=== PATIENT | male | born 1970 | race Caucasian/White ===

== ENCOUNTER 2017-01-09 18:04 | Emergency (ER) | payer BC ==
[2017-01-09 18:36] VITALS: BP 134/74
--- NOTE | 2017-01-09 18:44 | UC ---
Throat Pain/Nasal Oswald HPI - HPI Summary HPI Summary: complaint of throat feeling strange, throat with slight soreness thinks he might have thrush took 3 doses of antibiotics - pharyngitis- 3x in the last 40 days no difficulty swallowing but feels like he has a "bump " when swallowing denies cough denies fever , headache, nasal congestion - History of Current Complaint Chief Complaint: UCRespiratory Stated Complaint: SORE THROAT Time Seen by Provider: 01/09/17 18:38 Hx Obtained From: Patient - Allergies/Home Medications Allergies/Adverse Reactions: Allergies Allergy/AdvReac Type Severity Reaction Status Date / Time No Known Allergies Allergy Verified 01/09/17 18:36 Home Medications: Home Medications NK [No Home Medications Reported] 01/09/17 [History Confirmed 01/09/17] PMH/Surg Hx/FS Hx/Imm Hx Previously Healthy: Yes Endocrine History Of: Denies: Diabetes GI/ History Of: Reports: Kidney Stones - Surgical History Surgical History: None - Family History Known Family History: Positive: Hypertension, Diabetes, Other - Kidney stones - Social History Occupation: Employed Full-time Lives: With Family Alcohol Use: Occasionally Substance Use Type: None Smoking Status (MU): Never Smoked Tobacco Review of Systems Constitutional: Negative Skin: Negative Eyes: Negative ENT: Sore Throat Respiratory: Negative Cardiovascular: Negative Gastrointestinal: Negative Genitourinary: Negative Motor: Negative Neurovascular: Negative Musculoskeletal: Negative Neurological: Headache Psychological: Negative All Other Systems Reviewed And Are Negative: Yes Physical Exam Triage Information Reviewed: Yes Appearance: No Pain Distress, Well-Nourished Vital Signs: Initial Vital Signs Temp 97.7 F 01/09/17 18:31 Pulse 54 01/09/17 18:31 Resp 18 01/09/17 18:31 BP 134/74 01/09/17 18:31 Pulse Ox 99 01/09/17 18:31 Vital Signs Reviewed: Yes Eyes: Positive: Conjunctiva Clear ENT: Positive: Pharynx normal, TMs normal. Negative: Pharyngeal erythema, Nasal congestion, Nasal drainage, Tonsillar swelling Neck: Positive: No Lymphadenopathy Respiratory: Positive: Lungs clear, Normal breath sounds, No respiratory distress Cardiovascular: Positive: RRR, No Murmur, Pulses Normal Abdomen Description: Positive: Nontender, Soft Bowel Sounds: Positive: Present Musculoskeletal: Positive: No Edema Neurological: Positive: Alert Psychological Exam: Normal Skin Exam: Normal Throat Pain/Nasal Course/Dx - Course Course Of Treatment: exam completed. no s/s of thrush. will sedn to PCP for followup and possible referral to ENT if no improvement - Differential Dx/Diagnosis Differential Diagnosis/HQI/PQRI: Pharyngitis, Tonsillitis, Other - thrush Provider Diagnoses: pharyngitis Discharge - Discharge Plan Condition: Stable Disposition: HOME Patient Education Materials: Pharyngitis (ED) Referrals: Cali Katz MD [Primary Care Provider] - Additional Instructions: Your blood pressure is pre-hypertensive reading. Please contact your primary care provider within 1 day -4 weeks for further evaluation. HARYNGITIS (Sore Throat) What is Pharyngitis? The medical name for a sore throat is Pharyngitis. It is caused by an infection or irritation of your throat or tonsils. The infection can be caused by a virus or by bacteria. Not everyone with Pharyngitis needs antibiotics. Antibiotics will not make viral infections better, and they will not help a sore throat caused by irritation. Symptoms May Include: Sore throat Swelling of the glands in the neck Trouble or pain with swallowing Fever Headache Cough Extreme tiredness Ear pain Treatment Recommendations: Gargle every few hours with a solution of 1/4 teaspoon of salt dissolved in 1/ 2 cup of warm water. Drink plenty of warm beverages, like tea with lemon, (with or without honey) and soup. You may eat and drink cold foods and liquids like frozen yogurt, popsicles, and ice water if that makes your throat feel better. The goal is to keep you well hydrated. Use a "cool-mist" vaporizer or humidifier in the room where you spend most of your time. If you get a sore throat often, consider adding an electronic air filter and humidifier to your furnace system. Don't smoke. Do not eat spicy foods. Take medicine exactly as prescribed. If you do not think it is helping, call your healthcare provider. Do not increase how much or how often you take it without getting their OK first. Non-prescription anti-inflammatory medicine like ibuprofen (Motrin, Advil) or naproxen (Aleve) may help lessen the pain. You should not take these medicines if you have had bleeding in your stomach in the past. Acetaminophen ( Tylenol) is another choice of medicine that may help the pain. If pain medicine that makes you tired or sleepy or contains narcotics is prescribed, you should not drink, drive, or participate in any other activities that you need to be clear-headed for. Please keep all medicines out of the reach of children. Do not get in close contact with anyone you know who has a sore throat. Use throat lozenges (Cepostat, [place], etc.) or suck on hard candy for temporary relief of the pain with swallowing. (Do not give to children under age 5.) Call Your Doctor or Return Here IF: Your symptoms do not start to get better within 2 days or you become worse. You have a fever over 101.0 F orally. You cant swallow liquids or saliva. You are drooling. You start to have trouble breathing. You start to have a rash. You start to have a stiff neck. You start to have pain in your chest. You start to have any symptoms that are new or worry you.
== END 2017-01-09 19:15 | disposition home or self-care (01) ==
LOC: UCEAST 18:04
DX: J02.9 Acute pharyngitis, unspecified (principal)
CPT/HCPCS: 99211; G0463

== ENCOUNTER 2017-12-25 12:27 | Emergency (ER) | payer BC ==
[2017-12-25 12:36] VITALS: BP 140/89
--- NOTE | 2017-12-25 13:22 | UC ---
Skin Complaint HPI - HPI Summary HPI Summary: 47 yo WM no pmhx c/o small discrete rash in right forearm, and right upper inner thigh x 2-3 days. Does not recall scratching and nor particularly itchy, Denies new foods, detergent lotions, swimming, or contact with unsual bodies of water sweaty clothes or people or recent illnesses - History of Current Complaint Chief Complaint: UCSkin Time Seen by Provider: 12/25/17 12:56 Stated Complaint: RASH Hx Obtained From: Patient Onset/Duration: Lasting Days Skin Exposure Onset/Duration: Days Ago Onset Severity: Moderate Pain Intensity: 0 Location: Discrete, Other - right forearm and Aggravating Factor(s): Nothing Alleviating Factor(s): Nothing Associated Signs & Symptoms: Positive: Negative. Negative: Difficulty Breathing , Fever, Chills, Cough, Drainage, Tenderness - Allergy/Home Medications Allergies/Adverse Reactions: Allergies Allergy/AdvReac Type Severity Reaction Status Date / Time No Known Allergies Allergy Verified 12/25/17 12:36 Home Medications: Home Medications Efinaconazole [Jublia] 10 % EX DAILY 12/25/17 [History Confirmed 12/25/17] Review of Systems Constitutional: Negative Skin: Rash Eyes: Negative ENT: Negative Respiratory: Negative Cardiovascular: Negative Gastrointestinal: Negative Genitourinary: Negative Motor: Negative Neurovascular: Negative Musculoskeletal: Negative Neurological: Negative Psychological: Negative All Other Systems Reviewed And Are Negative: Yes PMH/Surg Hx/FS Hx/Imm Hx - Additional Past Medical History Additional PMH: none Previously Healthy: Yes - Surgical History Surgical History: None - Family History Known Family History: Positive: Hypertension, Diabetes, Other - Kidney stones - Social History Alcohol Use: Occasionally Substance Use Type: None Smoking Status (MU): Never Smoked Tobacco Physical Exam Triage Information Reviewed: Yes Appearance: Well-Appearing Vital Signs: Initial Vital Signs Temp 36.1 C 12/25/17 12:31 Pulse 53 12/25/17 12:31 Resp 16 12/25/17 12:31 BP 140/89 12/25/17 12:31 Pulse Ox 100 12/25/17 12:31 Eye Exam: Normal ENT Exam: Normal Dental Exam: Normal Neck exam: Normal Neck: Positive: 1 Respiratory Exam: Normal Cardiovascular Exam: Normal Abdominal Exam: Normal Musculoskeletal Exam: Normal Neurological Exam: Normal Psychological Exam: Normal Skin: Positive: rashes - small discrete blanchable raised irritated areas size abor 2x3cm of mild excoriation on right medial lower upper forearm and inner upper thigh Course/Dx - Course Course Of Treatment: likely idiopathic nonspecific skin erutption vs contact dermatitis (having to do with eccrine glands as pt works out alot and daily) which then was exacerbated by mild manual irritation - Diagnoses Provider Diagnoses: nonpsecific skin eruption. elevated BP w/o dx of HTN Discharge - Discharge Plan Condition: Stable Disposition: HOME Prescriptions: Betamethasone Valerate 45 gm TP BID 7 Days #1 tube Patient Education Materials: Acute Rash (ED) Referrals: Cali Katz MD [Primary Care Provider] - Additional Instructions: if symptoms persist or do not improve, consult with a buff wheel fabricator
== END 2017-12-25 13:20 | disposition home or self-care (01) ==
LOC: UCEAST 12:27
DX: R21 Rash and other nonspecific skin eruption (principal); R03.0 Elevated blood-pressure reading, without diagnosis of hypertension
CPT/HCPCS: 99212; G0463

== ENCOUNTER 2019-01-13 14:37 | Emergency (ER) | payer BC ==
[2019-01-13 14:44] VITALS: BP 154/98
--- NOTE | 2019-01-13 15:13 | UC ---
Skin Complaint HPI - HPI Summary HPI Summary: C/O left groin rash x 2 days. Got a penicillin shot for syphillus exposure 3 days ago. Used tinactin spray - History of Current Complaint Chief Complaint: UCSkin Stated Complaint: SKIN COMPLAINT Hx Obtained From: Patient Onset/Duration: Sudden Onset, Lasting Days - 2, Worse Since - onset Skin Exposure Onset/Duration: Days Ago - 3 Onset Severity: Mild Current Severity: Mild Pain Intensity: 0 Location: Discrete - left inguinal region Character: Pruritus, Redness Aggravating Factor(s): Nothing Alleviating Factor(s): Nothing Associated Signs & Symptoms: Positive: Rash. Negative: Nausea, Vomiting, Fever , Chills, Abdominal Pain, Tenderness, Red Streaks Related History: Recent change in medication - Allergy/Home Medications Allergies/Adverse Reactions: Allergies Allergy/AdvReac Type Severity Reaction Status Date / Time No Known Allergies Allergy Verified 01/13/19 14:44 PMH/Surg Hx/FS Hx/Imm Hx Previously Healthy: Yes - Surgical History Surgical History: None - Family History Known Family History: Positive: Hypertension, Diabetes, Other - Kidney stones - Social History Occupation: Employed Full-time Lives: Alone - with Partner Alcohol Use: Occasionally Substance Use Type: None Smoking Status (MU): Never Smoked Tobacco Review of Systems All Other Systems Reviewed And Are Negative: Yes Skin: Positive: Rash Is Patient Immunocompromised?: No Physical Exam Triage Information Reviewed: Yes Appearance: Well-Appearing, No Pain Distress, Well-Nourished Vital Signs: Initial Vital Signs Temp 97.4 F 01/13/19 14:41 Pulse 57 01/13/19 14:41 Resp 16 01/13/19 14:41 BP 154/98 01/13/19 14:41 Pulse Ox 100 01/13/19 14:41 Vital Signs Reviewed: Yes Eyes: Positive: Conjunctiva Clear Neck exam: Normal Respiratory Exam: Normal Cardiovascular Exam: Normal Abdominal Exam: Normal Bowel Sounds: Positive: Present Musculoskeletal Exam: Normal Neurological Exam: Normal Psychological Exam: Normal Skin: Positive: Rashes - erythematous patch left inguinal region with redness also at the top of the gluteal cleft. Course/Dx - Differential Diagnoses - Skin Complaint Differential Diagnoses: Abscess, Cellulitis, Eczema, Lymphadenitis - Diagnoses Provider Diagnosis: Candidal dermatitis, Dermatitis, Elevated blood pressure, situational Discharge - Sign-Out/Discharge Documenting (check all that apply): Patient Departure All imaging exams completed and their final reports reviewed: No Studies - Discharge Plan Condition: Stable Disposition: HOME Prescriptions: Betamethasone Dipropionate 45 gm TP BID #45 gm Ketoconazole 2 % CREAM (NF) [Nizoral 2% CREAM (NF)] 1 applic TOPICAL BID #30 gm Patient Education Materials: Skin Yeast Infection (ED), Ketoconazole (On the skin) Referrals: Cali Katz MD [Primary Care Provider] - 2 Weeks (recheck blood pressure.) - Billing Disposition and Condition Condition: STABLE Disposition: Home
== END 2019-01-13 15:31 | disposition home or self-care (01) ==
LOC: UCEAST 14:37
DX: L30.8 Other specified dermatitis (principal); B37.2 Candidiasis of skin and nail; R03.0 Elevated blood-pressure reading, without diagnosis of hypertension
CPT/HCPCS: 99212; G0463

== ENCOUNTER 2019-08-08 18:57 | Emergency (ER) | payer BC ==
--- OUTSIDE RECORDS SUMMARY | 2019-08-08 19:46 | XMS REPORT | Continuity of Care Document ---
:1970 External Reference #:[id number] Author Name Latonya Perkins M.D. Address [address] [place] [address] Problems Active Problems Provider Date Idiopathic peripheral neuropathy Cali Katz M.D. Onset: 02/16/2013 Symptom of skin and integumentary tissue Otf Patel M.D. Onset: 2012 Eruption Luis Eduardo Garcia M.D. Onset: 04/30/2013 Acute pharyngitis Cali Katz M.D. Onset: 01/18/2017 Acute sinusitis Cali Katz M.D. Onset: 01/18/2017 Social History Type Date Description Comments Sex Unknown Tobacco Use Start: Unknown Nonsmoker ETOH Use Occasional Tobacco Use Start: Unknown Patient has never smoked Smoking Status Reviewed: 09/04/18 Patient has never smoked Allergies, Adverse Reactions, Alerts Description No Known Drug Allergies Medications Active Medications SIG Qnty Indications Ordering Date Provider Methocarbamol take 1-2 tablets by 60tabs R68.89 Latonya Sevilla 08/03/2019 500mg mouth up to 4 times Tevin Perkins Tablets daily driving precautions History Medications No Active Medications Unknown 08/03/2019 - 08/03/2019 Immunizations CPT Code Status Date Vaccine Lot # [id number] Given 07/17/2019 Influenza Vac, [place]riv[place] [id number] Given 07/17/2018 Influenza Vac, [place] [id number] Given 03/01/2018 Tdap Tetanus, W Pertussis [id number] 97898 Given 07/15/2017 Influenza Vac, [place] [id number] Given 07/22/2016 Influenza Vac, [place] [id number] Given 08/20/2015 Influenza Vac, [place]riv[place] [address] Given 08/01/2014 DO Not Use Split Influenza Virus Vaccine 51537 Given 08/27/2013 DO Not Use Split Influenza Virus Vaccine [id number] 21774 Given 10/24/2012 DO Not Use Split Influenza Virus Vaccine 93934 Given 08/13/2011 DO Not Use Split Influenza Virus Vaccine [id number] 28910 Given 09/13/2009 DO Not Use Split Influenza Virus Vaccine [id number] 09263 Given 01/03/2006 Tetanus And Diptheria Adult Preservative Free >7Yrs 56163 Given 04/15/2000 Hepatitis B Immunization, adult dosage, for intramuscular use 76552 Given 11/12/1999 Hepatitis B Immunization, adult dosage, for intramuscular use 61794 Given 10/13/1999 Hepatitis B Immunization, adult dosage, for intramuscular use 66592 Given 10/13/1999 Hep A Adlt Immunization 85761 Given 03/11/1999 Hep A Adlt Immunization 41576 Given 08/26/1997 Influenza Immunization Vital Signs Date Vital Result Comment 08/03/2019 8:33am BP Systolic 112 mmHg BP Diastolic 80 mmHg Heart Rate 60 /min Body Temperature 97.3 F Height 72 inches 6'0" measured 01/09/15 Weight 179.00 lb BMI (Body Mass Index) 24.3 kg/m2 09/04/2018 4:37pm BP Systolic 120 mmHg BP Diastolic 78 mmHg Heart Rate 60 /min Body Temperature 98.1 F Respiratory Rate 16 /min Height 72 inches 6'0" measured 01/09/15 Weight 180.00 lb BMI (Body Mass Index) 24.4 kg/m2 Results Description No Information Available Procedures Description No Information Available Medical Devices Description No Information Available Encounters Description No Information Available Assessments Date Code Description Provider 08/03/2019 R68.89 Other general symptoms and signs Latonya Perkins M.D. 08/03/2019 M62.838 Other muscle spasm Latonya Perkins M.D. Plan of Treatment 08/03/2019 - Latonya Perkins M.D.R68.89 Other general symptoms and signsNew Medication:Methocarbamol 500 mg - take 1-2 tablets by mouth up to 4 times daily [address] precautionsComments:right lower eyelid painwill try a muscle relaxant. will refer to eye doctor if it gets worse, or if you want to for any reason.M62.838 Other muscle spasmComments:would take magnesium citrate 250 pill. 1-2-3 at night see if the cramps go away.AllComments:Medication Management Patient Understands medications he's taking? Yes No Are there Barriersto Adherence? Yes No Has the patient been asked about herbal supplements and therapies, and OTC meds? Yes No Functional Status Description No Information Available Mental Status Description No Information Available Referrals Description No Information Available
[2019-08-08 19:53] VITALS: BP 118/81
--- NOTE | 2019-08-08 20:14 | UC ---
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 At about 4pm he had onset of chills and rigors, sat in the hot tub for a while, but continued to feel chills. Temp to 102 within an hour, relieved with acetaminophen. Reports some sluggish urine flow chronically, not on medications. Sees Dr. Cerna annually for checks. About 15 years ago recalls episode which sounds like uropsepsis (high fever and chills). - History of Current Complaint Chief Complaint: UCGeneralIllness Time Seen by Provider: 08/08/19 20:03 Hx Obtained From: Patient Onset/Duration: Started Hours Ago Timing: Constant, Lasting Hours Initial Severity: Moderate Current Severity: Mild Pain Intensity: 0 Aggravating Factors: Nothing Alleviating Factors: Nothing Associated Signs and Symptoms: Arthralgia, Diaphoresis, Myalgia - Risk Factors Pseudomonas Risk Factors: Negative Serious Bacterial Infection Risk Factors: Negative - Allergy/Home Medications Allergies/Adverse Reactions: Allergies Allergy/AdvReac Type Severity Reaction Status Date / Time No Known Allergies Allergy Verified 08/08/19 19:53 Home Medications: Home Medications Acetaminophen TAB* [Tylenol TAB*] 650 mg PO ONCE 08/08/19 [History Confirmed ] PMH/Surg Hx/FS Hx/Imm Hx Previously Healthy: Yes GI/ History: Kidney Stones, Urosepsis - about 15 years ago. - Surgical History Surgical History: None - Family History Known Family History: Positive: Hypertension, Diabetes, Other - Kidney stones - Social History Occupation: Employed Full-time Lives: With Family Alcohol Use: Occasionally Substance Use Type: None Smoking Status (MU): Never Smoked Tobacco Review of Systems All Other Systems Reviewed And Are Negative: Yes Constitutional: Positive: Fever, Chills, Fatigue Skin: Positive: Negative Eyes: Positive: Negative ENT: Positive: Negative Respiratory: Positive: Negative Cardiovascular: Positive: Negative Gastrointestinal: Negative: Abdominal Pain, Vomiting, Diarrhea Genitourinary: Negative: Dysuria, Hematuria Motor: Positive: Negative Neurovascular: Positive: Negative Musculoskeletal: Positive: Negative Physical Exam Triage Information Reviewed: Yes Appearance: No Pain Distress, Ill-Appearing - looks pale, mildly diaphoretic. Vital Signs: Initial Vital Signs Temp 98.1 F 08/08/19 19:50 Pulse 69 08/08/19 19:50 Resp 18 08/08/19 19:50 BP 118/81 08/08/19 19:50 Pulse Ox 98 08/08/19 19:50 Eye Exam: Normal ENT: Positive: Pharynx normal Neck: Positive: Supple, Nontender, No Lymphadenopathy Respiratory: Positive: Lungs clear, Normal breath sounds Cardiovascular: Positive: RRR, No Murmur Abdomen Description: Positive: Nontender, No Organomegaly, Soft. Negative: CVA Tenderness (R), CVA Tenderness (L) Musculoskeletal Exam: Normal Musculoskeletal: Positive: Strength Intact, ROM Intact Neurological: Positive: Alert, Muscle Tone Normal Psychological Exam: Normal Skin Exam: Normal Diagnostics - Laboratory Lab Results: UA esterace positive and nitrites. Course/Dx - Course Course Of Treatment: Discussed with Dr. Walter, advised transfer to ER due to history of stones, risk of obstruction, possible prostatitis, and high risk of urosepsis. - Febrile Illness Differential Diagnoses: Pyelonephritis, Sepsis, Other: - prostatitis - Diagnoses Provider Diagnosis: UTI (urinary tract infection) - Provider Notifications Discussed Patient Care With: Theodore Walter - Ann Canas in ER Time Discussed With Above Provider: 20:30 Discharge ED - Sign-Out/Discharge Documenting (check all that apply): Patient Departure All imaging exams completed and their final reports reviewed: No Studies - Discharge Plan Condition: Stable Disposition: TRANS HIGHER LVL OF CARE FAC Referrals: Cali Katz MD [Primary Care Provider] - Additional Instructions: Please go directly to the ER for evaluation of infection, with imaging to evaluate your kidneys and bladder. - Billing Disposition and Condition Condition: STABLE Disposition: Trans Higher Lvl of Care Fac
== END 2019-08-08 20:50 | disposition short-term general hospital (02) ==
LOC: UCEAST 18:57
DX: N39.0 Urinary tract infection, site not specified (principal); M25.50 Pain in unspecified joint; R61 Generalized hyperhidrosis; M79.10 Myalgia, unspecified site; R53.83 Other fatigue; Z87.442 Personal history of urinary calculi
CPT/HCPCS: 81003; 87077; 87086; 87186; 99212; G0463

== ENCOUNTER 2019-08-08 21:04 | Emergency (ER) | payer BC ==
[2019-08-08 21:21] LABS: ABS Lymphocytes 0.6 10^3/ul (1.0-4.8); ABS Monocytes 0.4 10^3/ul (0-0.8); ABS Neutrophils 8.8 10^3/ul (1.5-7.7); Eosinophil % 0.1 %; Hematocrit 42 % (42-52); Hemoglobin 14.1 g/dL (14.0-18.0); Lymphocyte % 5.8 %; Mean Corpuscular HGB Conc 34 g/dL (31-36); Mean Corpuscular Hemoglobin 31 pg (27-31); Mean Corpuscular Volume 93 fL (80-94); Mean Platelet Volume 9.9 fL (7.4-10.4); Platelet Count 139 10^3/uL (150-450); Red Cell Distribution Width 13 % (10-15); White Blood Count 9.8 10^3/uL (3.5-10.8)
[2019-08-08 21:34] LABS: Urine Appearance Clear; Urine Bacteria 2+ (Absent); Urine Bilirubin Negative (Negative); Urine Blood Negative (Negative); Urine Color Yellow; Urine Glucose Negative (Negative); Urine Ketones Negative (Negative); Urine Nitrite Negative (Negative); Urine Protein Negative (Negative); Urine Red Blood Cell Trace(0-2/hpf) (Absent); Urine Specific Gravity 1.008 (1.010-1.030); Urine Urobilinogen Negative (Negative); Urine White Blood Cell 3+(>20/hpf) (Absent)
[2019-08-08 21:43] LABS: Albumin 4.6 g/dL (3.2-5.2); Albumin/Globulin Ratio 2.1 (1-3); BUN/Creatinine Ratio 17.6 (8-20); Calcium 9.6 mg/dL (8.6-10.3); EGFR African American 87.9 (>60); EGFR Non-African American 72.7 (>60); Globulin 2.2 g/dL (2-4); Potassium 4.1 mmol/L (3.5-5.0); Total Bilirubin 0.9 mg/dL (0.2-1.0); Total Protein 6.8 g/dL (6.4-8.9)
[2019-08-09] MEDS ORDERED: Ketorolac INJ* 30 MG/ML 1 ML VIAL IV PUSH ONE (01:34)
[2019-08-09] MEDS ORDERED: cefTRIAXone(*) 1 GM in NS 0.9% 50 ML* 50 ML IVPB ONE (01:34)
[2019-08-09] MEDS ORDERED: Lactated Ringers 1000 ML Bag* 1,000 ML IV ONE (01:35)
[2019-08-09] MEDS ORDERED: cefTRIAXone(*) 1 GM ADVAN/BAG ONE (01:46)
[2019-08-09 03:25] VITALS: BP 144/73
--- NOTE | 2019-08-09 03:48 | ED ---
Complex/Multi-Sys Presentation - HPI Summary HPI Summary: Patient is a 48 y/o M w/ Hx of UTI and kidney stones who presents to [facility] with complaints of fever, chills, diaphoresis, shaking, cramping, and malodorous urine. He states that earlier today, he urinated and noted that his urine smelled like a " animal". At around 1600, patient had onset of fever, chills , diaphoresis, cramping and shaking. Patient took a bath in an attempt to relief Sx. Patient later took his temperature and noted it to be 102 F. He states that he took two Tylenol which lowered his fever. Patient reports that he was evaluated at earlier today. UA was noted to be high in nitrates and the patient was sent to ED for US. US is not available until the morning. Patient's options were discussed. He declined CT and is agreeable with bedside US, bloodwork, UA, medications, and follow up with his urologist, Dr. Cerna, if needed. On triage, pain is denied, on assessment expert, blankets and Tylenol are noted to alleviate Sx. Home medications and allergies are reviewed. - History Of Current Complaint Chief Complaint: EDUrogenitalProblems Time Seen by Provider: 08/09/19 01:02 Hx Obtained From: Patient Onset/Duration: Lasting Hours Timing: Hours Severity Currently: None - pain denied Aggravating Factor(s): nothing Alleviating Factor(s): blankets, Tylenol is noted to alleviate Sx Associated Signs And Symptoms: Positive: Fever, Diaphoresis, Other - fever, chills, diaphoresis, shaking, cramping, and malodorous urine - Allergies/Home Medications Allergies/Adverse Reactions: Allergies Allergy/AdvReac Type Severity Reaction Status Date / Time No Known Allergies Allergy Verified 08/08/19 19:53 PMH/Surg Hx/FS Hx/Imm Hx Endocrine/Hematology History: Denies: Hx Diabetes History: Reports: Hx Kidney Stones - Immunization History Immunizations Up to Date: Yes Infectious Disease History: No Infectious Disease History: Reports: Hx Shingles Denies: Traveled Outside the [place] in Last 30 Days - Family History Known Family History: Positive: Hypertension, Diabetes, Other - Kidney stones - Social History Alcohol Use: Occasionally Hx Substance Use: No Substance Use Type: Reports: None Hx Tobacco Use: No Smoking Status (MU): Never Smoked Tobacco Review of Systems Constitutional: Other - positive - shaking and cramping Positive: Fever, Chills, Skin Diaphoresis Genitourinary: Other - positive - malodorous urine All Other Systems Reviewed And Are Negative: Yes Physical Exam - Summary Physical Exam Summary: Constitutional: Well-developed, Well-nourished, Alert. (-) Distressed; no CVA tenderness Skin: Warm, Dry HENT: Normocephalic; Atraumatic Eyes: Conjunctiva normal Neck: Musculoskeletal ROM normal neck. (-) JVD, (-) Stridor, (-) Tracheal deviation Cardio: Rhythm regular, rate normal, Heart sounds normal; Intact distal pulses; The pedal pulses are 2+ and symmetric. Radial pulses are 2+ and symmetric. Pulmonary/Chest wall: Effort normal. (-) Respiratory distress, (-) Wheezes, (-) Rales Abd: Soft, (-) tenderness, (-) Distension, (-) Guarding, (-) Rebound Musculoskeletal: (-) Edema Neuro: Alert, Oriented x3 Psych: Mood and affect Normal Triage Information Reviewed: Yes Vital Signs On Initial Exam: Initial Vitals Temp Pulse Resp BP Pulse Ox 98.4 F 69 18 137/83 99 08/08/19 21:10 08/08/19 21:10 08/08/19 21:10 08/08/19 21:10 08/08/19 21:10 Vital Signs Reviewed: Yes Procedures - Sedation Patient Received Moderate/Deep Sedation with Procedure: No - Ultrasound bedside US Ultrasound: normal - Bedside US was done, multiple views of both kidneys showed no evidence of hydronephrosis, no hydro-echoic areas in the calyx of the kidneys , no janay-nephritic edema noted. Diagnostics - Vital Signs Vital Signs Temp Pulse Resp BP Pulse Ox 08/09/19 03:20 98.9 F 72 19 144/73 98 08/09/19 03:00 75 96 08/09/19 02:43 63 141/79 97 08/09/19 02:13 64 98 08/08/19 23:43 98.3 F 63 18 128/82 99 08/08/19 21:10 98.4 F 69 18 137/83 99 - Laboratory Lab Results: Lab Results 10/30/19 10/30/19 10/30/19 Range/Units 21:14 21:14 21:19 WBC 9.8 (3.5-10.8) 10^3/uL RBC 4.50 (4.18-5.48) 10^6 /uL Hgb 14.1 (14.0-18.0) g/dL Hct 42 (42-52) % MCV 93 (80-94) fL MCH 31 (27-31) pg MCHC 34 (31-36) g/dL RDW 13 (10-15) % Plt Count 139 L (150-450) 10^3/uL MPV 9.9 (7.4-10.4) fL Neut % (Auto) 89.7 % Lymph % (Auto) 5.8 % [place] % (Auto) 4.0 % Eos % (Auto) 0.1 % Baso % (Auto) 0.4 % Absolute Neuts (auto) 8.8 H (1.5-7.7) 10^3/ul Absolute Lymphs (auto) 0.6 L (1.0-4.8) 10^3/ul Absolute Monos (auto) 0.4 (0-0.8) 10^3/ul Absolute Eos (auto) 0.0 (0-0.6) 10^3/ul Absolute Basos (auto) 0.0 (0-0.2) 10^3/ul Absolute Nucleated RBC 0.0 10^3/ul Nucleated RBC % 0.0 Sodium 138 (135-145) mmol/L Potassium 4.1 (3.5-5.0) mmol/L Chloride 104 (101-111) mmol/L Carbon Dioxide 29 (22-32) mmol/L Anion Gap 5 (2-11) mmol/L BUN 19 (6-24) mg/dL Creatinine 1.08 (0.67-1.17) mg/dL Est GFR ( Amer) 87.9 (>60) Est GFR (Non-Af Amer) 72.7 (>60) BUN/Creatinine Ratio 17.6 (8-20) Glucose 147 H (70-100) mg/dL Calcium 9.6 (8.6-10.3) mg/dL Total Bilirubin 0.90 (0.2-1.0) mg/dL AST 19 (13-39) U/L ALT 14 (7-52) U/L Alkaline Phosphatase 75 (34-104) U/L Total Protein 6.8 (6.4-8.9) g/dL Albumin 4.6 (3.2-5.2) g/dL Globulin 2.2 (2-4) g/dL Albumin/Globulin Ratio 2.1 (1-3) Urine Color Yellow Urine Appearance Clear Urine pH 6.0 (5-9) Ur Specific [place] 1.008 L (1.010-1.030) Urine Protein Negative (Negative) Urine Ketones Negative (Negative) Urine Blood Negative (Negative) Urine Nitrate Negative (Negative) Urine Bilirubin Negative (Negative) Urine Urobilinogen Negative (Negative) Ur Leukocyte Esterase 2+ A (Negative) Urine WBC (Auto) 3+(>20/hpf) A (Absent) Urine RBC (Auto) Trace(0-2/hpf) (Absent) Urine Bacteria 2+ A (Absent) Urine Glucose Negative (Negative) Result Diagrams: 08/08/19 21:14 08/08/19 21:14 Lab Statement: Any lab studies that have been ordered have been reviewed, and results considered in the medical decision making process. Complex Multi-Symp Course/Dx Course Of Treatment: Patient is a 48 y/o M w/ Hx of UTI and kidney stones who presents to [facility] with complaints of fever, chills, diaphoresis, shaking, cramping, and malodorous urine. He states that earlier today, he urinated and noted that his urine smelled like a " animal". At around 1600, patient had onset of fever, chills, diaphoresis, cramping and shaking. No CVA tenderness is noted. Bedside US was done, multiple views of both kidneys showed no evidence of hydronephrosis, no hydro-echoic areas in the calyx of the kidneys, no janay- nephritic edema noted. Bloodwork was obtained and WNL with exception of Plt count 139, absolute neuts 8.8, absolute lymphs 0.6, glucose 147. UA showed 2+ leukocyte esterase, 3+ WBC, trace RBC, 2+ bacteria. During ED course, patient received lactated ringers 1 L, toradol 15 mg IV, and ceftriaxone sodium 1 gm in sodium chloride 50 ml @ 100 mls/hr IVPB ED. Patient was discharged to home with prescription for Keflex. Early pyelonephritis versus UTI. - Diagnoses Provider Diagnoses: UTI (urinary tract infection) Discharge ED - Sign-Out/Discharge Documenting (check all that apply): Patient Departure - DISCHARGE - Discharge Plan Condition: Good Disposition: HOME Prescriptions: Cephalexin CAP* [Keflex CAP*] 500 mg PO TID 10 Days #30 cap Patient Education Materials: Urinary Tract Infection in Men (ED) Referrals: Cali Katz MD [Primary Care Provider] - - Billing Disposition and Condition Condition: GOOD Disposition: Home - Attestation Statements Document Initiated by Scribe: Yes Documenting Scribe: SWATI BAZAN Provider For Whom Scribe is Documenting (Include Credential): ELLIOTT TRINIDAD MD Scribe Attestation: [email or web address], scribed for ELLIOTT TRINIDAD MD on 08/09/19 at 0729. Scribe Documentation Reviewed: Yes Provider Attestation: The documentation as recorded by the [email or web address] patel accurately reflects the service I personally performed and the decisions made by me, ELLIOTT TRINIDAD MD Status of Scribe Document: Viewed
--- NOTE | 2019-08-11 15:33 | UC ---
- Progress Note Progress Note: Please notify patient His antibiotic may be effective for this infection If he is better continue antibiotic If he is improved but not completely better let me know If he is febrile or still feels ill he should go to the ER JLD Course/Dx - Diagnoses Provider Diagnoses: UTI (urinary tract infection) Discharge ED - Discharge Plan Condition: Good Disposition: HOME Prescriptions: Cephalexin CAP* [Keflex CAP*] 500 mg PO TID 10 Days #30 cap Patient Education Materials: Urinary Tract Infection in Men (ED) Referrals: Cali Katz MD [Primary Care Provider] - - Billing Disposition and Condition Condition: GOOD Disposition: Home
--- NOTE | 2019-08-11 15:36 | UC ---
- Progress Note Progress Note: Please notify patient If better finish full coarse of antibiotic If still febrile he should go to the ER Course/Dx - Diagnoses Provider Diagnoses: UTI (urinary tract infection) Discharge ED - Sign-Out/Discharge Documenting (check all that apply): Post-Discharge Follow Up - Discharge Plan Condition: Good Disposition: HOME Prescriptions: Cephalexin CAP* [Keflex CAP*] 500 mg PO TID 10 Days #30 cap Patient Education Materials: Urinary Tract Infection in Men (ED) Referrals: Cali Katz MD [Primary Care Provider] - - Billing Disposition and Condition Condition: GOOD Disposition: Home
== END 2019-08-09 03:30 | disposition home or self-care (01) ==
LOC: ED 21:04
DX: N39.0 Urinary tract infection, site not specified (principal); Z87.442 Personal history of urinary calculi
CPT/HCPCS: 36415; 80053; 81003; 81015; 85025; 96365; 96375; 99282; J0696; J1885